=== PATIENT | female | born 1985 | race Caucasian/White ===

== ENCOUNTER 2017-05-01 23:32 | Emergency (ER) | payer OTHER ==
[2017-05-01 23:33] VITALS: BP 141/89; PULSE 86; RESP 16; TEMP 98.7; O2SAT 98
[2017-05-02] MEDS ORDERED: IBUPROFEN 600 MG TAB PO ONE (00:15)
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
[2017-05-02] MEDS ORDERED: IBUP-232 PO (01:18)
[2017-05-02] MEDS ORDERED: CYCL10TA PO (01:18)
== END 2017-05-02 01:26 | disposition home or self-care (01) ==
LOC: NEPD 23:32
DX: S16.1XXA Strain of muscle, fascia and tendon at neck level, initial encounter (principal); S20.219A Contusion of unspecified front wall of thorax, initial encounter; V49.50XA Passenger injured in collision with unspecified motor vehicles in traffic accident, initial encounter
CPT/HCPCS: 70450; 71010; 72125; 84703; 99285